=== PATIENT | male | born 1965 | race Hispanic/Latino ===

== ENCOUNTER → 2018-07-20 | Day surgery (SDC) | payer OTHER ==
[2018-07-17 13:29] LABS: ALBUMIN 3.3 g/dL (3.5-5.0); ALBUMIN/GLOBULIN RATIO 0.9 (0.8-2.0); ANION GAP 12.5 mmol/L (8-16); CALCIUM 9.4 mg/dL (8.4-10.2); CREATININE, SERUM 1.27 mg/dL (0.72-1.25); POTASSIUM 4.5 mmol/L (3.5-5.1)
[~2018-07-20] MED LIST: ACETAMINOPHEN500 MG PO; BUPIVACAINE HCL 0.5% INJ 30 ML VIAL INJ ONE; FLUTICASONE INH; FOLIC ACID1 MG PO; FUROSEMIDE40 MG PO; HYDROXYZINE HCL25 MG PO; IOPAMIDOL 200 MG/ML 20 ML VIAL IT ONE; LACTULOSE20 GM/30 M PO; LIDOCAINE HCL 1% LOCAL INJ 20 ML VIAL ONE; LIDOCAINE HCL 2% LOCAL INJ 5 ML SDV VIAL INJ ONE; MIDAZOLAM HCL 2 MG/2 ML VIAL ONE; MULTIVITAMINS1 EAC7 PO; PANTOPRAZOLE SO40 MG PO; PROPOFOL IV EMULSION 10 MG/ML 20 ML VIAL ONE; SPIRONOLACTONE25 MG PO; TRIAMCINOLONE ACET 40 MG/ML VIAL ONE; VITAMIN B-1100 M1 PO; VITAMIN B-121000 MCG PO; XIFAXAN550 MG PO
--- OUTSIDE RECORDS SUMMARY | 2018-07-20 05:08 | XMS REPORT ---
[facility] Address Unknown Phone Unavailable Care Team Providers Care Grinder Operator Automatic Name Role Phone Unavailable Unavailable Payers Payer Name Policy Type Policy Number Effective Date Expiration Date Problems This patient has no known problems. Allergies, Adverse Reactions, Alerts Allergy Name Allergy Type Status Severity Reaction(s) Onset Date Inactive Date Treating Clinician Comments No Known Allergies DA Active U 2018-01-27 00:00:00 No Known Contrast Allergies DA Active U 2007-09-15 00:00:00 No Known Drug Allergies DA Active U 2007-09-15 00:00:00 No Known Food Allergies DA Active U 2007-09-15 00:00:00 No Known Other Allergies DA Active U 2007-09-15 00:00:00 Medications This patient has no known medications.
--- OUTSIDE RECORDS SUMMARY | 2018-07-20 05:08 | XMS REPORT ---
Author Author Jose L Samuels Organization [employer] Address Unknown Phone Unavailable Care Team Providers Care Peanut Sheller Name Role Phone Jose L Samuels CP Unavailable Encounters Encounter Location Date 2013 [facility] auth [facility] September 22, 2013 lexiscan--message [facility] September 22, 2013 Problems Problem Type Condition ICD-9 Code Onset Dates Condition Status Problem Benign hypertension 401.1 Active Social History Social History Element Qualifiers Date Reported Caffeine: . none September 21, 2013 Recreational drug use: . none September 21, 2013 Tobacco Use: . Smoking Status: current smoker September 21, 2013 Alcohol: . 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
--- OUTSIDE RECORDS SUMMARY | 2018-07-20 05:08 | XMS REPORT | Continuity of Care Document ---
Author Author [facility] Interface Address Unknown Phone Unavailable Problems Problem Status Onset Date Classification Date Reported Comments Source Benign hypertension Active Diagnosis 02/07/2014 [facility] Medications Medication Details Route Status Patient Instructions Ordering Provider Order Date Source Benicar HCT 1 tab(s) orally Active 25 mg-40 mg orally once a day [facility] 09/21/2013 [facility] Benicar 1 tab(s) orally No Longer Active 40 mg orally once a day [facility] aspirin 1 tab(s) orally Active 81 mg orally once a day [facility] metoprolol 1 tab(s) orally Active 100 mg orally once a day [facility] fenofibrate 1 tab(s) orally Active 145 mg orally once a day [facility] Robaxin-750 2 tab(s) orally Active 750 mg orally prn [facility] minocycline 1 cap(s) orally Active 100 mg orally once a day [facility] tramadol 1 tab(s) orally Active 50 mg orally prn [facility] Nexium 1 cap(s) orally Active 40 mg orally once a day [facility] Allergies, Adverse Reactions, Alerts Substance Category Reaction Severity Reaction type Status Date Reported Comments Source N.K.D.A. Adverse Reaction Info Not Available Adverse Reaction Active 09/21/2013 [facility] Immunizations Immunization Date Given Site Status Last Updated Comments Source Results Order Name Results Value Reference Range Date Interpretation Comments Source Vital Signs Vital Sign Value Date Comments Source Diastolic (mm Hg) 84 09/21/2013 [facility] Systolic (mm Hg) 162 09/21/2013 [facility] Weight 261 09/21/2013 [facility] Height 69 09/21/2013 [facility] Encounters Location Location Details Encounter Type Encounter Number Reason For Visit Attending Provider ADM Date DC Date Status Source [facility] Unknown [id number] 09/21/2013 09/21/2013 [facility] 2013 [facility] N[facility] auth [id number] 09/22/2013 09/22/2013 [facility] 2013 [facility] N[facility] auth [id number] 09/22/2013 09/22/2013 [facility] 2013 [facility] N[facility] auth [id number] 09/22/2013 09/22/2013 [facility] 2013 [facility] auth [id number] 09/22/2013 09/22/2013 [facility] lexiscan--message [id number] 09/22/2013 09/22/2013 [facility]an--message [id number] 09/22/2013 09/22/2013 [facility] lex[facility]an--message [id number] 09/22/2013 09/22/2013 [facility] lex[facility]an--message [id number] 09/22/2013 09/22/2013 [facility] Test results [id number] 10/07/2013 10/07/2013 [facility] Test results [id number] 10/07/2013 10/07/2013 [facility] Procedures Procedure Code Date Perfomer Comments Source
--- OUTSIDE RECORDS SUMMARY | 2018-07-20 05:08 | XMS REPORT | Clinical Summary ---
Author Author [facility] Organization [facility] Address Unknown Phone Unavailable Care Team Providers Care Gaming Director Name Role Phone Amandeep Hardy MD PCP Allergies No Known Allergies Medications End Date Status Medication Sig Dispensed Refills Start Date Active pantoprazole (PROTONIX) Take 40 mg by 0 40 MG EC tablet mouth daily. Active fluticasone (FLONASE) 50 1 spray by 0 mcg/actuation nasal spray Each Nare route nightly. Active folic acid (FOLVITE) 1 MG Take 1 mg by 0 tablet mouth daily. Active furosemide (LASIX) 40 mg Take 40 mg by 0 tablet mouth daily. Active lactulose 10 gram/15 mL Take 10 g by 0 (15 mL) solution mouth 2 (two) times a day. HOLD if Diarrhea Active spironolactone Take 50 mg by 0 (ALDACTONE) 25 MG tablet mouth daily as needed (Blood Pressure control). Active cyanocobalamin 100 MCG Take 100 mcg 0 tablet by mouth daily. 06/18/2018 Discontinued metFORMIN (GLUCOPHAGE) Take 500 mg 0 500 mg tablet by mouth daily with breakfast. 06/18/2018 Discontinued MELATONIN ORAL Take 2 0 tablets by mouth nightly. 07/17/2018 midodrine (PROAMATINE) Take 1 tablet 90 tablet 0 2.5 MG tablet (2.5 mg 9 total) by mouth 3 (three) times a day for 30 days. 07/17/2018 hydrOXYzine (ATARAX) 10 Take 1 tablet 20 tablet 0 MG tablet (10 mg total) 9 by mouth 3 (three) times a day as needed for itching for up to 30 days. 07/17/2018 riFAXimin (XIFAXAN) 550 Take 1 tablet 60 tablet 0 mg tablet (550 mg 9 total) by mouth 2 (two) times a day for 30 days. 07/18/2018 thiamine mononitrate, vit Take 1 tablet 30 tablet 0 B1, (B-1) 100 mg tablet (100 mg 9 total) by mouth daily for 30 days. 07/17/2018 multivitamin with Take 1 tablet 30 tablet 0 minerals tablet by mouth 9 daily for 30 days. Active Problems Problem Noted Date Alcoholic cirrhosis of liver with ascites 06/11/2018 Hepatic encephalopathy 06/11/2018 Hepatorenal syndrome 06/11/2018 Hyperkalemia 06/11/2018 End stage liver disease 06/11/2018 Hepatitis C 06/11/2018 Encounters Care Team Description Date Type Specialty Vishal Vidal MD Huaman Vargas, Gonzalo, MD Hypotension as manifestation of blood transfusion reaction (Primary Dx); Acute renal failure, unspecified acute renal failure type (HCC); Alcoholic cirrhosis of liver with ascites (HCC); Hyperkalemia; Hepatic encephalopathy (HCC) 06/11/2018 [facility] General Internal Medicine - Encounter 06/18/2018 06/11/2018 Travel after 07/19/2017 Social History Date Tobacco Use Types Packs/Day Years Used Current Every Day Smoker Cigarettes 0.25 20 Tobacco Cessation: Counseling Given: No Alcohol Use Drinks/Week oz/Week Comments Yes 1 pink a day Sex Assigned at Date Recorded Not on file Industry Job Start Date Occupation Not on file Not on file Not on file Travel End Travel History Travel Start No recent travel history available. Last Filed Vital Signs Time Taken Vital Sign Reading 06/18/2018 8:17 AM [employer] Blood Pressure 139/66 06/18/2018 8:17 AM [employer] Pulse 93 06/18/2018 8:17 AM [employer] Temperature 36.8 C (98.2 F) 06/18/2018 8:17 AM [employer] Respiratory Rate 18 06/18/2018 8:17 AM [employer] Oxygen Saturation 97% - Inhaled Oxygen - Concentration 06/17/2018 11:32 PM [employer] Weight 109 kg (239 lb 3.2 oz) 06/13/2018 7:01 PM [employer] Height 175.3 cm (5' 9") 06/17/2018 11:32 PM [employer] Body Mass Index 35.32 Plan of Treatment Health Maintenance Due Date Last Done Comments COLON CANCER SCREENING 2017 SHINGLES VACCINES (#1) 2017 INFLUENZA VACCINE 12/24/2017 Procedures Comments Procedure Name Priority Date/Time Associated Diagnosis POC GLUCOSE Routine 06/18/2018 12:31 PM [employer] POC GLUCOSE Routine 06/18/2018 8:23 AM [employer] ESTIMATED GFR Routine 06/18/2018 5:16 AM [employer] PROTHROMBIN TIME WITH INR Routine 06/18/2018 5:16 AM [employer] HC COMPLETE BLD COUNT Routine 06/18/2018 W/AUTO DIFF 5:16 AM [employer] COMPREHENSIVE METABOLIC Routine 06/18/2018 PANEL 5:16 AM [employer] POC GLUCOSE Routine 06/17/2018 9:59 PM [employer] POC GLUCOSE Routine 06/17/2018 6:34 PM [employer] POC GLUCOSE Routine 06/17/2018 12:27 PM [employer] HEMOGLOBIN & HEMATOCRIT Routine 06/17/2018 10:08 AM [employer] POC GLUCOSE Routine 06/17/2018 7:41 AM [employer] ESTIMATED GFR Routine 06/17/2018 6:15 AM [employer] PROTHROMBIN TIME WITH INR Routine 06/17/2018 6:15 AM [employer] HEPATIC FUNCTION PANEL Routine 06/17/2018 6:15 AM [employer] BASIC METABOLIC PANEL Routine 06/17/2018 6:15 AM [employer] HC COMPLETE BLD COUNT Routine 06/17/2018 W/AUTO DIFF 6:15 AM [employer] POC GLUCOSE Routine 06/16/2018 12:32 PM [employer] US ABDOMINAL PARACENTESIS Routine 06/16/2018 IMAGING 11:16 AM [employer] CELL COUNT AND Routine 06/16/2018 DIFFERENTIAL, BODY FLUID 10:49 AM [employer] SMEAR REVIEW Routine 06/16/2018 4:33 AM [employer] ESTIMATED GFR Routine 06/16/2018 4:33 AM [employer] PROTHROMBIN TIME WITH INR Routine 06/16/2018 4:33 AM [employer] HEPATIC FUNCTION PANEL Routine 06/16/2018 4:33 AM [employer] BASIC METABOLIC PANEL Routine 06/16/2018 4:33 AM [employer] HC COMPLETE BLD COUNT Routine 06/16/2018 W/AUTO DIFF 4:33 AM [employer] PHOSPHORUS LEVEL Routine 06/16/2018 4:33 AM [employer] MAGNESIUM LEVEL Routine 06/16/2018 4:33 AM [employer] POC GLUCOSE Routine 06/15/2018 10:56 PM [employer] POC GLUCOSE Routine 06/15/2018 6:21 PM [employer] US DUPLEX VENOUS LOWER Routine 06/15/2018 EXTREMITY BILATERAL 4:20 PM [employer] POC GLUCOSE Routine 06/15/2018 12:44 PM [employer] POC GLUCOSE Routine 06/15/2018 8:20 AM [employer] SMEAR REVIEW Routine 06/15/2018 6:26 AM [employer] ESTIMATED GFR Routine 06/15/2018 6:26 AM [employer] PROTHROMBIN TIME WITH INR Routine 06/15/2018 6:26 AM [employer] URIC ACID LEVEL Routine 06/15/2018 6:26 AM [employer] HEPATIC FUNCTION PANEL Routine 06/15/2018 6:26 AM [employer] BASIC METABOLIC PANEL Routine 06/15/2018 6:26 AM [employer] HC COMPLETE BLD COUNT Routine 06/15/2018 W/AUTO DIFF 6:26 AM [employer] PHOSPHORUS LEVEL Routine 06/15/2018 6:26 AM [employer] MAGNESIUM LEVEL Routine 06/15/2018 6:26 AM [employer] POC GLUCOSE Routine 06/14/2018 10:53 PM [employer] POC GLUCOSE Routine 06/14/2018 7:40 PM [employer] POC GLUCOSE Routine 06/14/2018 12:24 PM [employer] POC GLUCOSE Routine 06/14/2018 7:56 AM [employer] SMEAR REVIEW Routine 06/14/2018 7:00 AM [employer] HC COMPLETE BLD COUNT Routine 06/14/2018 W/AUTO DIFF 7:00 AM [employer] PROTHROMBIN TIME WITH INR Routine 06/14/2018 7:00 AM [employer] BASIC METABOLIC PANEL Routine 06/14/2018 4:00 AM [employer] ESTIMATED GFR Routine 06/14/2018 4:00 AM [employer] POC GLUCOSE Routine 06/13/2018 9:55 PM [employer] US HEPATIC Routine 06/13/2018 9:05 PM [employer] POC GLUCOSE Routine 06/13/2018 4:37 PM [employer] CBC HEMOGRAM STAT 06/13/2018 3:25 PM [employer] ALPHA FETOPROTEIN Routine 06/13/2018 3:25 PM [employer] POC GLUCOSE Routine 06/13/2018 11:18 AM [employer] POC GLUCOSE Routine 06/13/2018 7:33 AM [employer] SMEAR REVIEW Routine 06/13/2018 3:30 AM [employer] ESTIMATED GFR Routine 06/13/2018 3:30 AM [employer] IONIZED CALCIUM Routine 06/13/2018 3:30 AM [employer] PHOSPHORUS LEVEL Routine 06/13/2018 3:30 AM [employer] MAGNESIUM LEVEL Routine 06/13/2018 3:30 AM [employer] COMPREHENSIVE METABOLIC Routine 06/13/2018 PANEL 3:30 AM [employer] HEMOCHROMATOSIS (HFE) 3 Routine 06/13/2018 MUTATIONS 3:30 AM [employer] HC COMPLETE BLD COUNT Routine 06/13/2018 W/AUTO DIFF 3:30 AM [employer] PROTHROMBIN TIME WITH INR Routine 06/13/2018 3:30 AM [employer] POC GLUCOSE Routine 06/12/2018 8:49 PM [employer] POC GLUCOSE Routine 06/12/2018 4:51 PM [employer] ESTIMATED GFR Routine 06/12/2018 3:37 PM [employer] BASIC METABOLIC PANEL Routine 06/12/2018 3:37 PM [employer] ECHOCARDIOGRAM 2D Routine 06/12/2018 COMPLETE W MMODE SPECTRAL 3:15 PM [employer] COLOR DOPPLER ([id number]) US ABDOMINAL PARACENTESIS STAT 06/12/2018 IMAGING 11:25 AM [employer] ALBUMIN, MISC FLUID Routine 06/12/2018 11:06 AM [employer] PROTEIN, MISC FLUID Routine 06/12/2018 11:06 AM [employer] CELL COUNT AND Routine 06/12/2018 DIFFERENTIAL, BODY FLUID 11:06 AM [employer] GRAM STAIN Routine 06/12/2018 11:06 AM [employer] AEROBIC CULTURE Routine 06/12/2018 11:06 AM [employer] ANAEROBIC CULTURE Routine 06/12/2018 11:06 AM [employer] POC GLUCOSE Routine 06/12/2018 8:28 AM [employer] HEMOGLOBIN & HEMATOCRIT Timed 06/12/2018 8:24 AM [employer] POC GLUCOSE Routine 06/12/2018 4:51 AM [employer] SMEAR REVIEW Routine 06/12/2018 4:00 AM [employer] ESTIMATED GFR Routine 06/12/2018 4:00 AM [employer] AMMONIA LEVEL Routine 06/12/2018 4:00 AM [employer] PHOSPHORUS LEVEL Routine 06/12/2018 4:00 AM [employer] MAGNESIUM LEVEL Routine 06/12/2018 4:00 AM [employer] LACTIC ACID LEVEL Routine 06/12/2018 4:00 AM [employer] COMPREHENSIVE METABOLIC Routine 06/12/2018 PANEL 4:00 AM [employer] HEMOGLOBIN A1C Routine 06/12/2018 4:00 AM [employer] HBV QUANTITATIVE BY PCR Routine 06/12/2018 4:00 AM [employer] HEPATITIS C ANTIBODY Routine 06/12/2018 4:00 AM [employer] HEPATITIS B SURFACE Routine 06/12/2018 ANTIBODY 4:00 AM [employer] HEPATITIS B CORE ANTIBODY Routine 06/12/2018 TOTAL 4:00 AM [employer] HEPATITIS A ANTIBODY Routine 06/12/2018 TOTAL 4:00 AM [employer] HEPATITIS A ANTIBODY IGM Routine 06/12/2018 4:00 AM [employer] HEPATITIS C VIRUS Routine 06/12/2018 QUANTITATIVE BY PCR 4:00 AM [employer] HEPATITIS B SURFACE Routine 06/12/2018 ANTIGEN 4:00 AM [employer] TOTAL IRON BINDING Routine 06/12/2018 CAPACITY 4:00 AM [employer] FERRITIN LEVEL Routine 06/12/2018 4:00 AM [employer] ALPHA-1 ANTITRYPSIN LEVEL Routine 06/12/2018 4:00 AM [employer] CERULOPLASMIN LEVEL Routine 06/12/2018 4:00 AM [employer] ANTI SMOOTH MUSCLE AB Routine 06/12/2018 SCREEN 4:00 AM [employer] ANTI MITOCHONDRIA SCREEN Routine 06/12/2018 4:00 AM [employer] CARLA Routine 06/12/2018 4:00 AM [employer] HC COMPLETE BLD COUNT Routine 06/12/2018 W/AUTO DIFF 4:00 AM [employer] PROTHROMBIN TIME WITH INR Routine 06/12/2018 4:00 AM [employer] GGT Routine 06/12/2018 4:00 AM [employer] POC GLUCOSE Routine 06/12/2018 12:51 AM [employer] HEMOGLOBIN & HEMATOCRIT Timed 06/12/2018 12:15 AM [employer] POC GLUCOSE Routine 06/11/2018 7:57 PM [employer] ESTIMATED GFR STAT 06/11/2018 7:28 PM [employer] COMPREHENSIVE METABOLIC STAT 06/11/2018 PANEL 7:28 PM [employer] POTASSIUM LEVEL STAT 06/11/2018 7:28 PM [employer] LACTIC ACID LEVEL, SEPSIS Timed 06/11/2018 - NOW AND REPEAT 2X EVERY 7:28 PM [employer] 3 HOURS US RENAL STAT 06/11/2018 6:52 PM [employer] CREATININE LEVEL, URINE, Routine 06/11/2018 RANDOM 6:05 PM [employer] SODIUM LEVEL, URINE, Routine 06/11/2018 RANDOM 6:05 PM [employer] POC GLUCOSE Routine 06/11/2018 6:00 PM [employer] POC GLUCOSE Routine 06/11/2018 5:09 PM [employer] URINALYSIS SCREEN AND STAT 06/11/2018 MICROSCOPY, WITH REFLEX 5:05 PM [employer] TO CULTURE URINE CULTURE STAT 06/11/2018 5:05 PM [employer] ECG 12-LEAD STAT 06/11/2018 4:[address] [employer] [address] ABDOMEN WO CONTRAST STAT 06/11/2018 4:00 PM [employer] TROPONIN Timed 06/11/2018 3:29 PM [employer] LACTIC ACID LEVEL, SEPSIS Timed 06/11/2018 - NOW AND REPEAT 2X EVERY 3:29 PM [employer] 3 HOURS PARTIAL THROMBOPLASTIN STAT 06/11/2018 TIME (PTT) 1:04 PM [employer] PROTHROMBIN TIME WITH INR STAT 06/11/2018 1:04 PM [employer] RESPIRATORY PATHOGEN Routine 06/11/2018 PANEL 12:55 PM [employer] INFLUENZA ANTIGEN TEST, Routine 06/11/2018 REFLEX NEGATIVE TO RPP 12:55 PM [employer] BLOOD CULTURE, AEROBIC & Routine 06/11/2018 ANAEROBIC 12:55 PM [employer] DE CRITICAL CARE, E/M Routine 06/11/2018 30-74 MINUTES 12:21 PM [employer] BLOOD CULTURE, AEROBIC & Routine 06/11/2018 ANAEROBIC 11:45 AM [employer] B NATRIURETIC PEPTIDE STAT 06/11/2018 11:32 AM [employer] PHOSPHORUS LEVEL STAT 06/11/2018 11:32 AM [employer] MAGNESIUM LEVEL STAT 06/11/2018 11:32 AM [employer] LACTIC ACID LEVEL STAT 06/11/2018 11:32 AM [employer] C-REACTIVE PROTEIN STAT 06/11/2018 11:32 AM [employer] ALCOHOL LEVEL, BLOOD STAT 06/11/2018 11:32 AM [employer] SMEAR REVIEW STAT 06/11/2018 11:32 AM [employer] ESTIMATED GFR STAT 06/11/2018 11:32 AM [employer] AMMONIA LEVEL STAT 06/11/2018 11:32 AM [employer] LIPASE LEVEL STAT 06/11/2018 11:32 AM [employer] COMPREHENSIVE METABOLIC STAT 06/11/2018 PANEL 11:32 AM [employer] HC COMPLETE BLD COUNT STAT 06/11/2018 W/AUTO DIFF 11:32 AM [employer] after 07/19/2017 Results * POC glucose (06/18/2018 12:31 PM [employer]) Only the most recent of 27 results within the time period is included. POC glucose 83 65 - 99 mg/dL [facility] Comment: [facility] Notified RN Meter ID: [id number] Ath[employer] Marketing Agent: Yeyo Figueroa Performing Organization Address City/[facility]ode Phone Number [facility] DEPARTMENT OF [address] [place] [address] PATH[address] * Estimated GFR (06/18/2018 5:16 AM [employer]) Only the most recent of 10 results within the time period is included. Estimated GFR 64 mL/min/1.73 m2 [facility] Comment: HOSPITAL CatergoryUnitsInte rpretation G1 >=90 Normal or high G2 60-89Mildly decreased [id number] Mildly to moderately decreased [id number] Moderately to severely decreased G4 15-29Severely decreased G5 <15Kidney failure The eGFR was calculated using the Chronic Kidney Disease Epidemiology Collaboration (CKD-EPI) equation. Interpretation is based on recommendations of the National Kidney Foundation-Kidney Disease Outcomes Quality Initiative (NKF-KDOQI) published in 2014. Specimen Plasma specimen Performing Organization Address City/[facility]/Zipcode Phone Number [facility] DEPARTMENT OF [address] [place] [address] PATHOLOGY AND [facility] MEDICINE [address] * Prothrombin time with INR (06/18/2018 5:16 AM [employer]) Only the most recent of 8 results within the time period is included. Prothrombin time 23.3 (H) 11.5 - 14.5 sec [facility] INR 2.1 [facility] Comment: HOSPITAL The International Normalized Ratio (INR) is a therapeutic monitoring tool for patients who are stable on oral anticoagulant therapy. An INR of 2.0-3.0 is suggested for deep vein thrombosis/pulmonary embolism. Specimen Blood Performing Organization Address City/State/Zipcode Phone Number [facility] DEPARTMENT OF [address] [place] [address] PATHOLOGY AND GENOMIC MEDICINE [address] * CBC with platelet and differential (06/18/2018 5:16 AM [employer]) Only the most recent of 8 results within the time period is included. WBC 6.55 4.50 - 11.00 k/uL [facility] RBC 2.40 (L) 4.40 - 6.00 m/uL [facility] HGB 8.5 (L) 14.0 - 18.0 g/dL [facility] HCT 25.2 (L) 41.0 - 51.0 % [facility] MCV 105.0 (H) 82.0 - 100.0 fL [facility] MCH 35.4 (H) 27.0 - 34.0 pg [facility] MCHC 33.7 31.0 - 37.0 g/dL [facility] RDW - SD 64.9 (H) 37.0 - 55.0 fL [facility] MPV 10.6 8.8 - 13.2 fL [facility] Platelet count 54 (L) 150 - 400 k/uL [facility] Nucleated RBC 0.00 /100 WBC [facility] Neutrophils 63.0 39.0 - 69.0 % [facility] Lymphocytes 26.9 25.0 - 45.0 % [facility] Monocytes 6.3 0.0 - 10.0 % [facility] Eosinophils 2.7 0.0 - 5.0 % [facility] Basophils 0.6 0.0 - 1.0 % [facility] Immature granulocytes 0.5Comment: "Immature 0.0 - 1.0 % [facility] granulocytes" (promyelocytes, HOSPITAL myelocytes, metamyelocytes) Specimen Blood Performing Organization Address City/State/Zipcode Phone Number [facility] DEPARTMENT OF [address] [place] [address] PATHOLOGY AND GENOMIC MEDICINE [address] * Comprehensive metabolic panel (06/18/2018 5:16 AM [employer]) Only the most recent of 5 results within the time period is included. Sodium 138 135 - 148 mEq/L [facility] Potassium 4.1 3.5 - 5.0 mEq/L [facility] Chloride 105 98 - 112 mEq/L [facility] CO2 22 (L) 24 - 31 mEq/L [facility] Anion gap 11@ANIO 7 - 15 mEq/L [facility] BUN 26 (H) 6 - 20 mg/dL [facility] Creatinine 1.29 (H) 0.70 - 1.20 mg/dL [facility] Glucose 121 (H) 65 - 99 mg/dL [facility] Calcium 8.5 8.3 - 10.2 mg/dL [facility] Protein 6.1 (L) 6.3 - 8.3 g/dL [facility] Comment: HOSPITAL [place] 4.6-7.0 g/dL 1 week 4.4-7.6 g/dL 7 months-1year 5.1-7.3 g/dL 1-2 years5.6-7 .5 g/dL >3 years6.0-8 .0 g/dL 18-150 6.3-8.3 g/dL Albumin 3.7 3.5 - 5.0 g/dL [facility] A/G ratio 1.5 0.7 - 3.8 [facility] Alkaline phosphatase 142 (H) 40 - 129 U/L [facility] AST 119 (H) 10 - 50 U/L [facility] ALT 99 (H) 5 - 50 U/L [facility] Total bilirubin 6.4 (H) 0.0 - 1.2 mg/dL [facility] Specimen Plasma specimen Performing Organization Address [facility] Phone Number [facility] DEPARTMENT OF [address] [place] [address] PATHOLOGY AND GENOMIC MEDICINE [address] * Hemoglobin & hematocrit (06/17/2018 10:08 AM [employer]) Only the most recent of 3 results within the time period is included. HGB 9.1 (L) 14.0 - 18.0 g/dL [facility] HCT 26.8 (L) 41.0 - 51.0 % [facility] Specimen Blood Performing Organization Address [facility]/Zipcode Phone Number [facility] DEPARTMENT OF [address] [place] [address] PATHOLOGY AND GENOMIC MEDICINE [address] * Hepatic function panel (06/17/2018 6:15 AM [employer]) Only the most recent of 3 results within the time period is included. Albumin 3.4 (L) 3.5 - 5.0 g/dL [facility] Total bilirubin 6.4 (H) 0.0 - 1.2 mg/dL [facility] Bilirubin direct 3.7 (H) 0.0 - 0.3 mg/dL [facility] Alkaline phosphatase 137 (H) 40 - 129 U/L [facility] Protein 6.1 (L) 6.3 - 8.3 g/dL [facility] Comment: HOSPITAL [place] 4.6-7.0 g/dL 1 week 4.4-7.6 g/dL 7 months-1year 5.1-7.3 g/dL 1-2 years5.6-7 .5 g/dL >3 years6.0-8 .0 g/dL 18-150 6.3-8.3 g/dL ALT 103 (H) 5 - 50 U/L [facility] AST 120 (H) 10 - 50 U/L [facility] Specimen Plasma specimen Performing Organization Address City/[facility]/Zipcode Phone Number [facility] DEPARTMENT OF [address] [place] [address] PATHOLOGY AND GENOMIC MEDICINE [address] * Basic metabolic panel (06/17/2018 6:15 AM [employer]) Only the most recent of 5 results within the time period is included. Sodium 136 135 - 148 mEq/L [facility] Potassium 4.2 3.5 - 5.0 mEq/L [facility] Chloride 104 98 - 112 mEq/L [facility] CO2 25 24 - 31 mEq/L [facility] Anion gap 7@ANIO 7 - 15 mEq/L [facility] BUN 29 (H) 6 - 20 mg/dL [facility] Creatinine 1.22 (H) 0.70 - 1.20 mg/dL [facility] Glucose 127 (H) 65 - 99 mg/dL [facility] Calcium 8.3 8.3 - 10.2 mg/dL [facility] Specimen Plasma specimen Performing Organization Address City/State/Zipcode Phone Number [facility] DEPARTMENT [facility] [address] [place] [address] PATHOLOGY AND GENOMIC MEDICINE [facility] [address] * US Abdominal Paracentesis Imaging (06/16/2018 11:16 AM [employer]) Only the most recent of 2 results within the time period is included. Narrative Performed At PROCEDURE: RADIANT Ultrasound-guided paracentesis Performing Radiologist: Elisabet Bolanos PA-C Assistants: None Pre Procedure Diagnosis: ASCITES Post Procedure Diagnosis: ASCITES Indication: Ascites Complications: No immediate post procedure complications. IMPRESSION: 1.Technically successful ultrasound-guided diagnostic/therapeutic paracentesis. 2.There is a moderate simple ascites. 3.Trace residual ascites is seen on postprocedure ultrasound. PLAN: The patient will be monitored in the recovery area for approximately 30 minutes to evaluate vital signs and blood pressure. PROCEDURE SUMMARY: Access of the peritoneal space using ultrasound guidance PROCEDURE DETAILS: Pre-procedure: Comparison studies: None Written and informed consent for the procedure and monitored conscious sedation was obtained from the patient. Prophylactic antibiotics: None Preparation: The right lower quadrant of the abdomen was prepared and draped using all elements of maximal sterile barrier technique including sterile gloves, sterile gown, catheter, mask, large sterile sheet, sterile ultrasound probe cover, hand hygiene and cutaneous antisepsis using chlorhexidine. Anesthesia/Sedation: Level of anesthesia: None (Lidocaine only) Medications used: 1% lidocaine Duration of anesthesia/sedation: N/A Access: Local anesthesia was administered. The right lower quadrantwas evaluated with preprocedure ultrasound. Real-time ultrasound was used to visualize needle entry into the peritoneal space. Access technique: 5 Malaysian Yueh Needle Paracentesis: Fluid Color: Yellow Volume Removed: 3100 mL Fluid Analysis: The fluid was sent for laboratory tests ordered by the primary team Closure: The One-step catheter was removed and hemostasis was achieved with manual compression. A sterile dressing was applied. Additional details: Estimated blood loss: Less than 10 cc [facility]-[id number] Procedure Note [facility], Radiology Results Incoming - 06/16/2018 3:48 PM [employer] PROCEDURE: Ultrasound-guided paracentesis Performing Radiologist: Elisabet Bolanos PA-C Assistants: None Pre Procedure Diagnosis: ASCITES Post Procedure Diagnosis: ASCITES Indication: Ascites Complications: No immediate post procedure complications. IMPRESSION: 1. Technically successful ultrasound-guided diagnostic/therapeutic paracentesis. 2. There is a moderate simple ascites. 3. Trace residual ascites is seen on postprocedure ultrasound. PLAN: The patient will be monitored in the recovery area for approximately 30 minutes to evaluate vital signs and blood pressure. PROCEDURE SUMMARY: Access of the peritoneal space using ultrasound guidance PROCEDURE DETAILS: Pre-procedure: Comparison studies: None Written and informed consent for the procedure and monitored conscious sedation was obtained from the patient. Prophylactic antibiotics: None Preparation: The right lower quadrant of the abdomen was prepared and draped using all elements of maximal sterile barrier technique including sterile gloves, sterile gown, catheter, mask, large sterile sheet, sterile ultrasound probe cover, hand hygiene and cutaneous antisepsis using chlorhexidine. Anesthesia/Sedation: Level of anesthesia: None (Lidocaine only) Medications used: 1% lidocaine Duration of anesthesia/sedation: N/A Access: Local anesthesia was administered. The right lower quadrant was evaluated with preprocedure ultrasound. Real-time ultrasound was used to visualize needle entry into the peritoneal space. Access technique: 5 Malaysian Yueh Needle Paracentesis: Fluid Color: Yellow Volume Removed: 3100 mL Fluid Analysis: The fluid was sent for laboratory tests ordered by the primary team Closure: The One-step catheter was removed and hemostasis was achieved with manual compression. A sterile dressing was applied. Additional details: Estimated blood loss: Less than 10 cc [facility]-[id number] Performing Organization Address [facility] Phone Number [facility] [address] [place] [address] * Cell count and differential, body fluid (06/16/2018 10:49 AM [employer]) Only the most recent of 2 results within the time period is included. [facility] fluid type Ascitic [facility] Color, fluid Yellow [facility] Appearance, fluid Hazy [facility] RBC, fluid SEE COMMENTComment: 2+ (500 - /CMM [facility] 10,000 RBC/CMM) HOSPITAL Nucleated cells, fluid 178 /CMM [facility] Fluid mononuclear cell See Diff [facility] Neutrophils, fluid 1 % [facility] Lymphocytes, fluid 19 % [facility] Macrophages, fluid 80 % [facility] Specimen Fluid Performing Organization Address [facility] Phone Number [facility] DEPARTMENT OF [address] [place] [address] PATHOLOGY AND GENOMIC MEDICINE [address] * Smear review (06/16/2018 4:33 AM [employer]) Only the most recent of 6 results within the time period is included. Platelet slide review Mkd decreased (A) [facility] Anisocytosis Moderate [facility] Polychromasia Moderate [facility] Target cells Moderate (A) [facility] Ovalocytes Moderate [facility] Performing Organization Address [facility] Phone Number [facility] [place] [address] PATHOLOGY AND GENOMIC MEDICINE [address] * Phosphorus level (06/16/2018 4:33 AM [employer]) Only the most recent of 5 results within the time period is included. Phosphorus 2.3 (L) 2.4 - 4.5 mg/dL [facility] Specimen Plasma specimen Performing Organization Address [facility] Phone Number [facility] [place] [address] PATHOLOGY AND GENOMIC MEDICINE [address] * Magnesium level (06/16/2018 4:33 AM [employer]) Only the most recent of 5 results within the time period is included. Magnesium 2.2 1.6 - 2.6 mg/dL [facility] Specimen Plasma specimen Performing Organization Address [facility] Phone Number [facility] [place] [place] [address] PATHOLOGY AND GENOMIC MEDICINE [address] * Us duplex venous lower extremity (06/15/2018 4:20 PM [employer]) Narrative Performed At [facility] Lower Extremity Venous Report [address] [place] [address] Pat.Name:PAYTON ESTEVES.ID:[id number] .Date: 06/15/2018 Refer.MD:LIZZETTE HALL MD Exam Time: 3:52:00 PMStudy Type:LE Venous DOBAge:1965,53YSex: MALE Sonogrphr: Farfan Vi, RVTPat. Stat.:Inpatient Room:[address] TapeVol: , CPT - 4: 43976 Echo Event ID:[id number] Order ID:[id number] Reason for Study:Bilateral leg swelling. History of acute kidney injury, alcoholic liver cirrhosis, Hep C, DM, HTN. Procedures:Colorflow, Grayscale/2D, Pulsed wave Doppler Race:C SUMMARY: * Normal Reflux Criteria:< 0.5 seconds * Abnormal Reflux Criteria:> or equal to 0.5 seconds DUPLEX SCAN OBSERVATIONS Deep VeinsSuperficial Veins RightLeft RightLeft EIV GSV (prox) NormalNormal CFV Normal Incompetent (above knee) Femoral Normal Normal GSV (dist) Normal Not Visualized Profunda Normal Normal (below knee) Popliteal Normal Normal PT (prox) Normal NormalSSV Normal Normal PT (dist) Normal Normal Peroneal Normal Normal Gastroc NormalNormal RIGHT: There is normal compressibility with no evidence of echogenic material noted within the lumen of the visualized veins.Colorflow and Doppler signals are normal. LEFT: There is normal compressibility with no evidence of echogenic material noted within the lumen of the visualized veins.Colorflow and Doppler signals are demonstrate venous reflux> 0.5 seconds seen in the common femoral vein. PRELIMINARY FINDINGS 1. No evidence of venous thrombosis seen in the visualized veins, bilaterally. 2. 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 PHYSICIAN INTERPRETATION Venous examination of the both lower extremities demonstrated no evidence of venous thrombosis in the visualized veins. 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 MEASUREMENTS: DOPPLER General Anatomy Left General An 0Left General An 0 TIME Left General An 0.805 s Signed 06/15/2018 09:09 PM Gopal Munoz MD, RPVI Procedure Note Interface, Radiology Results In - 06/15/2018 9:09 PM [facility] Vascular Ultrasound Laboratory Lower Extremity Venous Report [address] [address], [place] [address] Pat.Name: PAYTON ESTEVES.ID: [id number] .Date: 06/15/2018 Refer.: LIZZETTE HALL MD Exam Time: 3:52:00 PM Study Type:LE Venous Age: 12 1965,53Y Sex: MALE Sonogrphr: Farfan [place], RVT Pat. Stat.:Inpatient Room: M6VO-3467-E Tape Vol: [facility] - 4: [address] Echo Event ID:[id number] Order ID: [id number] Reason for Study:Bilateral leg swelling. History of acute kidney injury, alcoholic liver cirrhosis, Hep C, DM, HTN. Procedures:Colorflow, Grayscale/2D, Pulsed wave Doppler Race: C SUMMARY: * Normal Reflux Criteria: < 0.5 seconds * Abnormal Reflux Criteria: > or equal to 0.5 seconds DUPLEX SCAN OBSERVATIONS Deep Veins Superficial Veins Right Left Right Left EIV GSV (prox) Normal Normal CFV Normal Incompetent (above knee) Femoral Normal Normal GSV (dist) Normal Not Visualized Profunda Normal Normal (below knee) Popliteal Normal Normal PT (prox) Normal Normal SSV Normal Normal PT (dist) Normal Normal Peroneal Normal Normal Gastroc Normal Normal RIGHT: There is normal compressibility with no evidence of echogenic material noted within the lumen of the visualized veins.Colorflow and Doppler signals are normal. LEFT: There is normal compressibility with no evidence of echogenic material noted within the lumen of the visualized veins.Colorflow and Doppler signals are demonstrate venous reflux> 0.5 seconds seen in the common femoral vein. PRELIMINARY FINDINGS 1. No evidence of venous thrombosis seen in the visualized veins, bilaterally. 2. 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 PHYSICIAN INTERPRETATION Venous examination of the both lower extremities demonstrated no evidence of venous thrombosis in the visualized veins. 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 MEASUREMENTS: DOPPLER General Anatomy Left General An 0 Left General An 0 TIME Left General An 0.805 s Signed 06/15/2018 09:09 PM Gopal Munoz MD, RPVI Performing Organization Address City/State/Zipcode Phone Number [facility] [address] [place] [address] * Uric acid level (06/15/2018 6:26 AM [employer]) Uric acid 9.6 (H) 3.4 - 7.0 mg/dL [facility] Specimen Plasma specimen Performing Organization Address City/[facility]/Zipcode Phone Number [facility] DEPARTMENT OF [address] [place] [address] PATHOLOGY AND GENOMIC MEDICINE [place] [id number] H[facility]PITAL * US Hepatic (06/13/2018 9:05 PM [employer]) Narrative Performed At EXAM: US HEPATIC RADIANT CLINICAL HISTORY:Cirrhosis COMPARISON: CT, 06/11/2018 FINDINGS: Liver:The enlarged liver is diffusely heterogeneous in echogenicity and has a nodular contour consistent with cirrhosis. MPV:Doppler evaluation of the portal vein demonstrates normal hepatopedal flow. Main portal vein diameter 1.7 cm. Gallbladder:The gallbladder demonstrates a couple small calculi. The gallbladder wall is minimally thickened to 4.26 mm. Bile ducts:Common bile duct measures 3.9 mm, within normal limits. No intrahepatic biliary dilatation. Ascites: Small amount of ascites identified sonographically.. Pleural effusion:There are no pleural effusions. IMPRESSION: 1.Hepatic cirrhosis. Small amount of ascites. Minimal amount of small gallbladder calculi. Minimal gallbladder wall thickening to 4.3 mm, likely secondary to the patient's overall volume overload/hyperproteinemia. [facility]-[id number] Procedure Note Interface, Radiology Results Incoming - 06/13/2018 11:08 PM [employer] EXAM: US HEPATIC CLINICAL HISTORY: Cirrhosis COMPARISON: CT, 06/11/2018 FINDINGS: Liver: The enlarged liver is diffusely heterogeneous in echogenicity and has a nodular contour consistent with cirrhosis. MPV: Doppler evaluation of the portal vein demonstrates normal hepatopedal flow. Main portal vein diameter 1.7 cm. Gallbladder: The gallbladder demonstrates a couple small calculi. The gallbladder wall is minimally thickened to 4.26 mm. Bile ducts: Common bile duct measures 3.9 mm, within normal limits. No intrahepatic biliary dilatation. Ascites: Small amount of ascites identified sonographically.. Pleural effusion: There are no pleural effusions. IMPRESSION: 1. Hepatic cirrhosis. Small amount of ascites. Minimal amount of small gallbladder calculi. Minimal gallbladder wall thickening to 4.3 mm, likely secondary to the patient's overall volume overload/hyperproteinemia. [facility]-[id number] Performing Organization Address City/[facility]/Zipcode Phone Number [address] [address] * Alpha fetoprotein (06/13/2018 3:25 PM [employer]) Alpha fetoprotein 3.3 0.0 - 8.3 ng/mL [facility] Comment: HOSPITAL The Chelsea 8000 AFP immunoassay was used. Results obtained with different assay methods or kits should not be used interchangeably and may be different. Specimen Serum Performing Organization Address [facility] Phone Number [facility] DEPART[facility] [address] [address] PATHOLOGY AND GENOMIC MEDICINE [address] * CBC hemogram (06/13/2018 3:25 PM [employer]) WBC 8.15 4.50 - 11.00 k/uL [facility] RBC 2.69 (L) 4.40 - 6.00 m/uL [facility] HGB 9.5 (L) 14.0 - 18.0 g/dL [facility] HCT 28.5 (L) 41.0 - 51.0 % [facility] MCV 105.9 (H) 82.0 - 100.0 fL [facility] MCH 35.3 (H) 27.0 - 34.0 pg [facility] MCHC 33.3 31.0 - 37.0 g/dL [facility] RDW - SD 73.1 (H) 37.0 - 55.0 fL [facility] MPV 10.4 8.8 - 13.2 fL [facility] Platelet count 101 (L) 150 - 400 k/uL [facility] Nucleated RBC 0.00 /100 WBC [facility] Specimen Blood Performing Organization Address City/[facility]/Zipcode Phone Number [facility] DEPARTMENT [facility] [place] [address] PATHOLOGY AND GENOMIC MEDICINE [address] * Hemochromatosis (HFE) 3 mutations (06/13/2018 3:30 AM [employer]) HFE PCR specimen Whole Blood [facility] C282Y hemochromatosis Negative [facility] mutation H63D hemochromatosis Negative [facility] mutation S65C hemochromatosis Negative [facility] mutation Hemochromatosis mutation See Note [facility] interpretation Comment: Indication for testing: Carrier screening or diagnostic testing for hereditary hemochromatosis. Hemochromatosis Interpretive Results: Negative WT: C282Y: NegativeThe patient is negative for the HFE C282Y mutation. H63D: NegativeThe patient is negative for the HFE H63D mutation. S65C: NegativeThe patient is negative for the HFE S65C mutation. Mutations in unidentified genes or other mutations in the HFE gene are not ruled out. This result has been reviewed and approved by Will Madden, Ph.D. BACKGROUND INFORMATION: Hemochromatosis (HFE) 3 Mutations CHARACTERISTICS: Disorder of iron metabolism resulting in excessive iron storage leading to increased skin pigmentation, arthritis, hypogonadism, diabetes mellitus, heart arrhythmias/failure, cirrhosis and liver carcinoma. INCIDENCE: One in 300 individuals of [place] descent; unknown in other ethnicities. INHERITANCE: Autosomal recessive. PENETRANCE: 5 percent of C282Y homozygotes, 1 percent of C282Y/H63D compound heterozygotes and rare H63D homozygotes develop clinical symptoms. CAUSE: Two pathogenic HFE gene mutations on opposite chromosomes. MUTATIONS TESTED: p.C282Y (c.845G>A), p.H63D (c.187C>G), and p.S65C (c.193A>T). CLINICAL SENSITIVITY: 85 percent of hereditary hemochromatosis in Northern Europeans is caused by C282Y homozygosity and 5 percent by C282Y/H63D compound heterozygosity. METHODOLOGY: PCR and fluorescence monitoring. ANALYTICAL SENSITIVTY AND SPECIFICITY: 99 percent. LIMITATIONS: HFE mutations, other than those targeted, will not be detected. Diagnostic errors can occur due to rare sequence variations. Test developed and characteristics determined by [employer]. See Compliance Statement C: [employer]/ Performed by [employer], [address] [place], [place] [id number] [email or web address], Alfonzo Montoya MD - Lab. Director Specimen Serum Performing Organization Address City/State/Zipcode Phone Number [facility] [address] [place] [address] [facility] RE[facility] [address] [place] [address] * Ionized calcium (06/13/2018 3:30 AM [employer]) pH 7.57 [facility] Ionized calcium 1.11 1.11 - 1.32 mmol/L [facility] Specimen Plasma specimen Performing Organization Address City/State/Zipcode Phone Number [facility] DEPARTMENT OF [address] [place] [address] PATHOLOGY AND GENOMIC MEDICINE [facility] [address] [place] [address] HOSPITAL * Echocardiogram complete w contrast and 3D if needed (06/12/2018 3:15 PM [employer]) Narrative Performed At [facility] Echocardiography Report [address] [facility], [address], [place] [address] Pat.Name:PAYTON ESTEVES Pat.ID:[id number] .Date: 06/12/2018 Refer.MD:LIZZETTE HALL MD Exam Time: 2:41:00 PMStudy Type:Routine Echo Height:59inWeight:260lb BSA: 2.06 m2 DOBAge:1965,53Y Sex: MALEBP:129/58 HR:75 bpm Sonogrphr: Sherron Lowry RDCS; Jennifer Ruffin (student) Pat. Stat.:Inpatient Room:[place] [address] Study Status:Final Echo Event ID:[id number] Order ID:[id number] Reason for Study:systolic murmur, also workup for possible transplant Procedures:2D Echo, Colorflow Doppler, Portable, Intravenous Definity Contrast Race: SUMMARY: LV EF is hyperdynamic. Estimated EF is >70%. No hemodynamically significant valvular pathology. FINDINGS: LV: LV size is normal. LV EF is hyperdynamic. Overall wall motionis hyperdynamic. Estimated EF is >70%. RV: RV size is normal. RV systolic function is hyperdynamic. LA: LA volume is severely enlarged. RA: RA size is normal. AO: Aortic root diameter is normal. SENIA: No pericardial effusion. AV: No structural AV abnormalities noted. MV: No structural MV abnormalities noted. PV: No structural PV abnormalities noted. TV: No structural TV abnormalities noted. Zapata: LV relaxation is reduced, appropriate for age. LV filling pressureis normal. Other:Insufficient TR jet to estimate PA systolic pressure. MEASUREMENTS: 2D Parasternal Long [place] LVOT 2.2 cmLA Ds5 cm LVIDd5.3 cmIndex2.6 cm/m Ao An2.3 cm LVIDs2.4 cmAo Rtd 3.5 cm Index1.7 cm/m LV%fs 54.7 % LV Ldyj399.7 g(122-174) IVSd 1.2 cmLVM Umofq166.5 g/m2 LVPWd1 cmRWT0.4 LA Sng Plane LA Area 32.4 cm2(8.8-23.4) LA Vol 131 ml Index63.6 ml/m LA LngAx 6.6 cm Signed 06/12/2018 06:38 PM Dea Duarte MD Procedure Note Interface, Radiology Results In - 06/12/2018 6:39 PM [employer] Echocardiography Report [address]Name: PAYTON ESTEVES.ID: [id number] .Date: 06/12/2018 Refer.: LIZZETTE HALL MD Exam Time: 2:41:00 PM Study Type:Routine Echo Height: 59in Weight: 260lb BSA: 2.06 m2 Age: 12 1965,53Y Sex: MALE BP: 129/58 HR: 75 bpm Sonogrphr: Sherron Lowry RDCS; Jennifer Ruffin (student) Pat. Stat.:Inpatient Room: [place] [address] Study Status:Final Echo Event ID:[id number] Order ID: [id number] Reason for Study:systolic murmur, also workup for possible transplant Procedures:2D Echo, Colorflow Doppler, Portable, Intravenous Definity Contrast Race: SUMMARY: LV EF is hyperdynamic. Estimated EF is >70%. No hemodynamically significant valvular pathology. FINDINGS: LV: LV size is normal. LV EF is hyperdynamic. Overall wall motion is hyperdynamic. Estimated EF is >70%. RV: RV size is normal. RV systolic function is hyperdynamic. LA: LA volume is severely enlarged. RA: RA size is normal. AO: Aortic root diameter is normal. SENIA: No pericardial effusion. AV: No structural AV abnormalities noted. MV: No structural MV abnormalities noted. PV: No structural PV abnormalities noted. TV: No structural TV abnormalities noted. Zapata: LV relaxation is reduced, appropriate for age. LV filling pressure is normal. Other: Insufficient TR jet to estimate PA systolic pressure. MEASUREMENTS: 2D Parasternal [place] LVOT 2.2 cm LA Ds 5 cm LVIDd 5.3 cm Index 2.6 cm/m Ao An 2.3 cm LVIDs 2.4 cm Ao Rtd 3.5 cm Index 1.7 cm/m LV%fs 54.7 % LV Mass 227.7 g (122-174) IVSd 1.2 cm LVM Index 110.5 g/m2 LVPWd 1 cm RWT 0.4 LA Sng Plane LA Area 32.4 cm2 (8.8-23.4) LA Vol 131 ml Index 63.6 ml/m LA LngAx 6.6 cm Signed 06/12/2018 06:38 PM Dea Duarte MD Performing Organization Address City/[facility] Phone Number [facility] [address] [place] [address] * Aerobic culture (06/12/2018 11:06 AM [employer]) Aerobic culture isolate No growth after 3 days. [facility] Comment: HOSPITAL Specimen Information Specimen Source: Peritoneal fluid Specimen Site: Ascites Specimen Peritoneal fluid - Ascites Performing Organization Address [facility] Phone Number [facility] DEPARTMENT OF [address] [place] [address] PATHOLOGY AND GENOMIC MEDICINE [address] * Gram stain (06/12/2018 11:06 AM [employer]) Gram stain isolate Rare WBC's [facility] No organisms seen HOSPITAL Comment: Specimen Information Specimen Source: Peritoneal fluid Specimen Site: Ascites Specimen Peritoneal fluid - Ascites Performing Organization Address [facility] Phone Number [facility] DEPARTMENT OF [address] [place] [address] PATHOLOGY AND GENOMIC MEDICINE [address] * Anaerobic culture (06/12/2018 11:06 AM [employer]) Anaerobic culture isolate No anaerobic organisms [facility] isolated. HOSPITAL Comment: Specimen Information Specimen Source: Peritoneal fluid Specimen Site: Ascites Specimen Peritoneal fluid - Ascites Performing Organization Address [facility] Phone Number [facility] DEPARTMENT OF [address] [place] [address] PATHOLOGY AND GENOMIC MEDICINE [address] * Protein, misc fluid (06/12/2018 11:06 AM [employer]) Fluid type Ascitic [facility] Protein, fluid 1.0 g/dL [facility] Comment: HOSPITAL Analysis performed on Chelsea 8000 analyzer. This is not an approved methodology for this specimen type;accuracy and clinical significance uncertain. Specimen Fluid Performing Organization Address City/[facility] Phone Number [facility] DEPARTMENT OF [address] [place] [address] PATHOLOGY AND GENOMIC MEDICINE [address] * Albumin, misc fluid (06/12/2018 11:06 AM [employer]) Fluid type Ascitic [facility] Albumin, fluid 0.4 g/dL [facility] Comment: HOSPITAL Analysis performed on Chelsea 8000 analyzer. This is not an approved methodology for this specimen type;accuracy and clinical significance uncertain. Specimen Fluid Performing Organization Address City/[facility] Phone Number [facility] DEPARTMENT OF [address] [place] [address] PATHOLOGY AND GENOMIC MEDICINE [address] * Anti smooth muscle Ab screen (06/12/2018 4:00 AM [employer]) Anti smooth muscle Ab Not Detected Not-Detected [facility] Specimen Blood Performing Organization Address [facility] Phone Number [facility] [place] [place] [address] PATHOLOGY AND GENOMIC MEDICINE [address] * Total iron binding capacity (06/12/2018 4:00 AM [employer] [employer]) Iron level 104 59 - 158 ug/dL [facility] Iron binding capacity 121 (L) 200 - 400 ug/dL [facility] % Saturation 86.0 (H) 20.0 - 40.0 % [facility] Specimen Plasma specimen Performing Organization Address [facility] Phone Number [facility] DEPARTMENT OF [address] [place] [address] PATHOLOGY AND GENOMIC MEDICINE [address] * HBV quantitative by PCR (06/12/2018 4:00 AM [employer]) HBV, quantitative PCR Not-Detected Not-Detected IU/mL [facility] HBV, quantitative PCR See link below for PDF Lab [facility] ReportComment: Case Number: [facility] [id number] Specimen Blood Performing Organization Address City/[facility] Phone Number [facility] DEPARTMENT OF [address] [place] [address] PATHOLOGY AND GENOMIC MEDICINE [address] * Hepatitis C antibody (06/12/2018 4:00 AM [employer]) Hepatitis C Ab Non-reactive Non-reactive [facility] Specimen Serum Performing Organization Address City/[facility] Phone Number [facility] [place] [address] PATHOLOGY AND [facility] MEDICINE [address] * Alpha-1 antitrypsin level (06/12/2018 4:00 AM [employer]) Alpha-1 antitrypsin 119 90 - 200 mg/dL [facility] Specimen Plasma specimen Performing Organization Address City/[facility] Phone Number [facility] [place] [address] PATHOLOGY AND [facility] MED[facility] [address] * Hepatitis A antibody IgM (06/12/2018 4:00 AM [employer]) Hepatitis A IgM Non-reactive Non-reactive [facility] Specimen Serum Performing Organization Address [facility] Phone Number [facility] [place] [address] PATHOLOGY AND [facility] MEDICINE [address] * Hepatitis A antibody total (06/12/2018 4:00 AM [employer]) Hepatitis A total Ab Reactive (A) Non-reactive [facility] Comment: HOSPITAL Hepatitis A Total Antibody reactive. Hepatitis A IgM antibody will be performed and reported separately when completed. Specimen Serum Performing Organization Address [facility] Phone Number [facility] [place] [address] PATHOLOGY AND [facility] MEDICINE [address] * Anti mitochondria screen (06/12/2018 4:00 AM [employer]) Anti mitochondria screen Not Detected Not-Detected [facility] Specimen Blood Performing Organization Address City/[facility] Phone Number [facility] [place] [address] PATHOLOGY AND [facility] MEDICINE [address] * Ceruloplasmin level (06/12/2018 4:00 AM [employer]) Ceruloplasmin 22 15 - 30 mg/dL [facility] Specimen Plasma specimen Performing Organization Address City/State/Zipcode Phone Number [facility] DEPARTMENT OF [address] [place] [address] PATHOLOGY AND [facility] MEDICINE [address] * Hepatitis B core antibody total (06/12/2018 4:00 AM [employer]) Hepatitis B core total Ab Non-reactive Non-reactive [facility] Specimen Serum Performing Organization Address City/State/Zipcode Phone Number [facility] DEPARTMENT OF [address] [place] [address] PATHOLOGY AND [facility] MEDICINE [address] * Hepatitis C virus quantitative by PCR (06/12/2018 4:00 AM [employer]) Hepatitis C quantitative, Not-Detected Not-Detected IU/mL [facility] Hepatitis C quantitative, See link below for PDF Lab [facility] ReportComment: Case Number: [facility] [id number] Specimen Blood Performing Organization Address City/[facility]/Zipcode Phone Number [facility] DEPARTMENT OF [address] [place] [address] PATHOLOGY AND [facility] MEDICINE [address] * Hepatitis B surface antibody (06/12/2018 4:00 AM [employer]) Hepatitis B surface Ab Non-reactive Non-reactive [facility] Specimen Serum Performing Organization Address City/[facility] Phone Number [facility] [place] [address] PATHOLOGY [address] * Hepatitis B surface antigen (06/12/2018 4:00 AM [employer]) Hepatitis B surface Ag Non-reactive Non-reactive [facility] Specimen Serum Performing Organization Address City/State/Zipcode Phone Number [facility] DEPARTMENT OF [address] [place] [address] PATHOLOGY AND [facility] MEDICINE [address] * CARLA (06/12/2018 4:00 AM [employer]) CARLA screen Negative Negative [facility] Specimen Blood Performing Organization Address City/State/Zipcode Phone Number [facility] DEPARTMENT OF [address] [place] [address] PATHOLOGY AND [facility] MEDICINE [address] * Lactic acid level (06/12/2018 4:00 AM [employer]) Only the most recent of 2 results within the time period is included. Lactic acid 1.1 0.5 - 2.2 mmol/L [facility] Specimen Plasma specimen Performing Organization Address City/[facility] Phone Number [facility] [place] [address] PATHOLOGY AND GENOMIC MEDICINE [address] * Hemoglobin A1c (06/12/2018 4:00 AM [employer]) Hemoglobin A1C 5.1 4.0 - 5.6 % [facility] Comment: HOSPITAL HbA1c cutoffs for diagnosing diabetes: 4.0% - 5.6%=normal 5.7% - 6.4%=increased risk for diabetes (prediabetes) >=6.5%=diabetes Goals for glycemic control (ADA 2016) < 7.0%Target for non adults with diabetes. More or less stringent targets may be appropriate for individual patients. <7.5% Target for Children and adolescents with type 1 diabetes. Specimen Blood Performing Organization Address City/[facility]ode Phone Number [facility] [place] [address] PATHOLOGY AND [facility] MEDICINE [address] * GGT (06/12/2018 4:00 AM [employer]) GGT 137 (H) 0 - 59 U/L [facility] Specimen Plasma specimen Performing Organization Address City/[facility] Phone Number [facility] [place] [address] PATHOLOGY AND GENOMIC MEDICINE [address] * Ferritin level (06/12/2018 4:00 AM [employer]) Ferritin level 1,592 (H) 30 - 400 ng/mL [facility] Specimen Plasma specimen Performing Organization Address [facility]ode Phone Number [facility] [place] [address] PATHOLOGY AND GENOMIC MEDICINE [address] * Ammonia level (06/12/2018 4:00 AM [employer]) Only the most recent of 2 results within the time period is included. Ammonia 41 16 - 60 umol/L [facility] Specimen Blood Performing Organization Address City/[facility]/Zipcode Phone Number [facility] DEPARTMENT OF [address] [place] [address] PATHOLOGY AND GENOMIC MEDICINE [address] * Lactic acid level, SEPSIS - Now and repeat 2x every 3 hours (06/11/2018 7:28 PM [employer]) Only the most recent of 2 results within the time period is included. Lactic acid 2.6 (H) 0.5 - 2.2 mmol/L [facility] Specimen Blood Performing Organization Address City/[facility] Phone Number [facility] [place] [address] PATHOLOGY AND GENOMIC MEDICINE [address] * Potassium level (06/11/2018 7:28 PM [employer]) Potassium 5.9 (H) 3.5 - 5.0 mEq/L [facility] Specimen Plasma specimen Performing Organization Address City/[facility] Phone Number [facility] [place] [address] PATHOLOGY AND GENOMIC MEDICINE [address] * US Renal (06/11/2018 6:52 PM [employer]) Narrative Performed At EXAMINATION:US RENAL RADIANT CLINICAL HISTORY:Renal failureacute (kidney injury) COMPARISON:None. IMPRESSION: 1.There is no hydronephrosis. 2.Renal cortical echogenicity is slightly increased reflecting medical renal disease. 3.Right kidney measures 11.3 x 4.5 x 6.9 cm. 4.Left kidney measures 10.3 x 5.5 x 5 cm. 5.Bladder is unremarkable. 6.There is small ascites. [facility]-[id number] Procedure Note Hm Interface, Radiology Results Incoming - 06/11/2018 7:09 PM [employer] EXAMINATION: US RENAL CLINICAL HISTORY: Renal failure acute (kidney injury) COMPARISON: None. IMPRESSION: 1. There is no hydronephrosis. 2. Renal cortical echogenicity is slightly increased reflecting medical renal disease. 3. Right kidney measures 11.3 x 4.5 x 6.9 cm. 4. Left kidney measures 10.3 x 5.5 x 5 cm. 5. Bladder is unremarkable. 6. There is small ascites. [facility]-[id number] Performing Organization Address City/[facility]/[place] [address] * Sodium level, urine, random (06/11/2018 6:05 PM [employer]) Sodium, urine, random 53 mEq/L [facility] Specimen Urine Performing Organization Address City/[facility] Phone Number [facility] [place] [address] PATHOLOGY AND GENOMIC MEDICINE [address] * Creatinine level, urine, random (06/11/2018 6:05 PM [employer]) Creatinine, urine, random 85 mg/dL [facility] Specimen Urine Performing Organization Address [facility] Phone Number [facility] [place] [address] PATHOLOGY AND [facility] MEDICINE [address] * Urinalysis screen and microscopy, with reflex to culture (06/11/2018 5:05 PM [employer]) Specimen site Clean catch [facility] Color, UA Valentina [facility] Appearance, UA Clear [facility] Specific gravity, UA 1.012 1.001 - 1.035 [facility] pH, UA 6.0 5.0 - 8.5 [facility] Protein, UA Negative Negative [facility] Glucose, UA Negative Negative [facility] Ketones, UA Negative Negative [facility] Bilirubin, UA Negative Negative [facility] Blood, UA Negative Negative [facility] Nitrite, UA Negative Negative [facility] Urobilinogen, UA <2.0 <2.0 [facility] Leukocyte esterase, UA Negative Negative [facility] WBC, UA 3 (H) 0 - 1 /HPF [facility] RBC, UA 1 0 - 5 /HPF [facility] Bacteria, UA Few None seen [facility] Yeast, UA None seen [facility] Yeast with pseudohyphae, None seen [facility] Hyaline casts, UA 14 /LPF [facility] Specimen Urine Performing Organization Address [facility]ode Phone Number [facility] [place] [address] PATHOLOGY AND GENOMIC MEDICINE [facility] [address] [place] [address] * Urine culture (06/11/2018 5:05 PM [employer]) Urine culture SEE COMMENTComment: [facility] Bacteriuria screen negative. HOSPITAL Performing Organization Address City/State/[facility] Phone Number [facility] DEPARTMENT OF [address] [place] [address] PATHOLOGY AND GENOMIC MEDICINE [facility] [address] [place] [address] HOSPITAL * ECG 12 lead (06/11/2018 4:02 PM [employer]) Ventricular rate 87 [facility] Atrial rate 87 [facility] DE interval 152 [facility] QRSD interval 120 [facility] QT interval 406 [facility] QTC interval 488 [facility] P axis 1 53 [facility] M[facility] QRS axis 1 58 [facility] MUSE T wave axis 1 HM MUSE EKG impression Normal sinus rhythm-Inferior HM MUSE infarct , age undetermined-Abnormal ECG-No previous ECGs available- Narrative Performed At Performing Organization Address City/[facility] Centercode Phone Number [facility] [address] [place] [address] * CT Abdomen Wo Contrast (06/11/2018 4:00 PM [employer]) Narrative Performed At EXAMINATION:CT ABDOMEN WO CONTRAST HM RADIANT CLINICAL HISTORY:Abn liver function tests (LFTs) TECHNIQUE: Multiple axial images of the abdomen were obtained without intravenous contrast. Sagittal and coronal computerized reformatted images were also obtained. The lack of intravenous contrast reduces the sensitivity of detecting solid organ disease. CT scans are performed using radiation dose reduction techniques. Technical factors are evaluated and adjusted to ensure appropriate moderation of exposure. Automated dose management technology is applied to adjust radiation exposure while achieving a diagnostic quality image. COMPARISON:None. IMPRESSION: 1.Liver is cirrhotic. There is moderate ascites compatible with portal hypertension. Spleen is enlarged, 16 cm. 2.There is cholelithiasis. 3.2.1 cm fat density right adrenal mass compatible with a myelolipoma. The kidneys are normal in size and contour without hydronephrosis. The pancreas is unremarkable in noncontrast appearance. 4.The abdominal aorta is normal in caliber. There is no regional adenopathy. 5.No suspicious osseous lesions are seen. [facility]-[id number] Procedure Note [facility], Radiology Results Incoming - 06/11/2018 5:12 PM [employer] EXAMINATION: CT ABDOMEN WO CONTRAST CLINICAL HISTORY: Abn liver function tests (LFTs) TECHNIQUE: Multiple axial images of the abdomen were obtained without intravenous contrast. Sagittal and coronal computerized reformatted images were also obtained. The lack of intravenous contrast reduces the sensitivity of detecting solid organ disease. CT scans are performed using radiation dose reduction techniques. Technical factors are evaluated and adjusted to ensure appropriate moderation of exposure. Automated dose management technology is applied to adjust radiation exposure while achieving a diagnostic quality image. COMPARISON: None. IMPRESSION: 1. Liver is cirrhotic. There is moderate ascites compatible with portal hypertension. Spleen is enlarged, 16 cm. 2. There is cholelithiasis. 3. 2.1 cm fat density right adrenal mass compatible with a myelolipoma. The kidneys are normal in size and contour without hydronephrosis. The pancreas is unremarkable in noncontrast appearance. 4. The abdominal aorta is normal in caliber. There is no regional adenopathy. 5. No suspicious osseous lesions are seen. [facility]-[id number] Performing Organization Address City/[facility]/Zipcode Phone Number [facility] [address] [place] [address] * Troponin (06/11/2018 3:29 PM [employer]) Troponin <0.30 0.00 - 0.30 ng/mL [facility] Comment: HOSPITAL 0.30 - 1.49 ng/mlMay indicate increased risk of acute coronary syndrome. >=1.5 ng/ml Consistent with acute myocardial infarction. The diagnostic value of a single normal or non-diagnostic result is questionable.Serial samples at 2-6 hour intervals are required to rule out acute myocardial injury. Specimen Blood Performing Organization Address [facility]/Zipcode Phone Number [facility] DEPARTMENT OF [address] [place] [address] PATHOLOGY AND GENOMIC MEDICINE [facility] [address] [place] [address] * Partial thromboplastin time, activated (06/11/2018 1:04 PM [employer]) PTT 36.5 (H) 23.0 - 36.0 sec [facility] Comment: HOSPITAL PTT therapeutic range for unfractionated heparin is 61.0-112.0 seconds which corresponds to Anti-Xa 0.3-0.7 U/ml. Specimen Blood Performing Organization Address City/[facility]/Zipcode Phone Number [facility] [place] [address] PATHOLOGY [address] * Respiratory pathogen panel (06/11/2018 12:55 PM [employer]) Respiratory pathogen Negative for all pathogens [facility] panel tested: HOSPITAL Negative for Adenovirus Negative for Coronavirus HKU1 Negative for Coronavirus NL63 Negative for Coronavirus 229E Negative for Coronavirus OC43 Negative for Human Metapneumovirus Negative for Rhinovirus/Enterovirus Negative for Influenza A Negative for Influenza A/H1 Negative for Influenza A/H3 Negative for Influenza A/H1-2009 Negative for Influenza B Negative for Parainfluenza Virus 1 Negative for Parainfluenza Virus 2 Negative for Parainfluenza Virus 3 Negative for Parainfluenza Virus 4 Negative for Respiratory Syncytial Virus Negative for Bordetella pertussis Negative for Chlamydophila pneumoniae Negative for Mycoplasma pneumoniae This real-time PCR assay detects the presence of nucleic acids (RNA or DNA) for the respiratory pathogens listed. A result of "Not-detected" does not exclude the possibility of the presence of one or more pathogens at concentrations less than the detectable limits of the assay. Comment: Specimen Information Specimen Source: Nares Specimen Site: Right Specimen Nares - Right Performing Organization Address [facility] Cent[facility]ode Phone Number [facility] [place] [address] PATHOLOGY [address] * Influenza antigen test, reflex negative to RPP (06/11/2018 12:55 PM [employer]) Influenza antigen Negative for Influenza A/B [facility]. [facility] Comment: Specimen Information Specimen Source: Nares Specimen Site: Right Specimen Nares - Right Performing Organization Address City/[facility]/Zipcode Phone Number [facility] [place] [address] PATHOLOGY [address] * Blood culture, aerobic & anaerobic (06/11/2018 12:55 PM [employer]) Only the most recent of 2 results within the time period is included. Blood culture isolate No growth after 5 days of [facility] incubation. HOSPITAL Comment: Specimen Information Specimen Source: Blood Specimen Site: Arm, right Specimen Blood - Arm, right Performing Organization Address [facility] Phone Number [facility] [place] [address] PATHOLOGY AND GENOMIC MEDICINE [address] * CRITICAL CARE (06/11/2018 12:21 PM [employer]) Narrative Performed At Vishal Vidal MD 06/15/20188:56 AM Critical Care Performed by: Vishal Vidal MD Authorized by: Vishal Vidal MD Critical care provider statement: Critical care time (minutes):35 Critical care start time:06/11/2018 12:25 PM Critical care end time:06/11/2018 1:00 PM Critical care time was exclusive of:Separately billable procedures and treating other patients and teaching time Critical care was necessary to treat or prevent imminent or life-threatening deterioration of the following conditions:Shock, circulatory failure and renal failure Critical care was time spent personally by me on the following activities:Ordering and performing treatments and interventions, ordering and review of laboratory studies, ordering and review of radiographic studies, pulse oximetry, re-evaluation of patient's condition, review of old charts, obtaining history from patient or surrogate, interpretation of cardiac output measurements, examination of patient, evaluation of patient's response to treatment, discussions with primary provider, discussions with consultants and development of treatment plan with patient or surrogate Bigg 'yes' if you are taking over critical care for this patient from another provider.: no * C-reactive protein (06/11/2018 11:32 AM [employer]) CRP 1.57 (H) 0.00 - 0.50 mg/dL [facility] Specimen Plasma specimen Performing Organization Address [facility] Centercode Phone Number [facility] DEPARTMENT OF [address] [place] [address] PATHOLOGY AND GENOMIC MEDICINE [address] * B natriuretic peptide (06/11/2018 11:32 AM [employer]) BNP 34 0 - 100 pg/mL [facility] Performing Organization Address City/[facility] Centercode Phone Number [facility] [place] [address] PATHOLOGY AND GENOMIC MEDICINE [address] * Lipase level (06/11/2018 11:32 AM [employer]) Lipase 342 (H) 13 - 60 U/L [facility] Specimen Plasma specimen Performing Organization Address City/[facility]ode Phone Number [facility] [place] [address] PATHOLOGY AND GENOMIC MEDICINE [address] * Alcohol level, blood (06/11/2018 11:32 AM [employer]) Alcohol None Detected mg/dL [facility] Comment: HOSPITAL Normal None Detected Legal Intoxication in [place]80 mg/dL (0.08%) - Whole Blood Toxic Concentration 200 mg/dL (0.2%) Potentially Fatal3 50 - 500 mg/dL (0.35 - 0.5%) Alcohol percent None Detected % [facility] Specimen Plasma specimen Performing Organization Address [facility] Phone Number [facility] [place] [address] PATHOLOGY AND GENOMIC MEDICINE [address] after 07/19/2017 Insurance Payer Benefit Subscriber ID Type Phone Address Plan / Group CIGNA CIGNA OPEN xxxxxxxxxxx O ACCESS/NET WORK Advance Directives Patient has advance care planning documents on file. For more information, pre[place] e contact: [place] [phone]
--- OUTSIDE RECORDS SUMMARY | 2018-07-20 05:08 | XMS REPORT ---
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
--- OUTSIDE RECORDS SUMMARY | 2018-07-20 05:08 | XMS REPORT ---
Author Author Jose L Samuels Organization [employer] Address Unknown Phone Unavailable Care Team Providers Care Production Support Consultant Name Role Phone Jose L Samuels CP Unavailable Allergies, Adverse Reactions, Alerts Substance Reaction Event Type N.K.D.A. Info Not Available Non Drug Allergy Encounters Encounter Location Date Unknown [facility] September 21, [id number] [facility] [facility] auth [facility] September 22, 2013 lexiscan--message [facility] September 22, 2013 Test results [facility] October 07, 2013 Problems Problem Type Condition ICD-9 Code Onset Dates Condition Status Assessment Benign hypertension 401.1 Active Problem Benign hypertension 401.1 Active Medications Medication Code System Code Instructions Start Date End Date Status Dosage Benicar MULTUM 52808 40 mg orally once a day Inactive 1 tab(s) Benicar HCT MULTUM 55805 25 mg-40 mg orally once a day September 21, 2013 Active 1 tab(s) aspirin MULTUM 37271 81 mg orally once a day Active 1 tab(s) metoprolol MULTUM 55336 100 mg orally once a day Active 1 tab(s) fenofibrate MULTUM 72540 145 mg orally once a day Active 1 tab(s) Robaxin-750 MULTUM 3673 750 mg orally prn Active 2 tab(s) minocycline MULTUM 07915 100 mg orally once a day Active 1 cap(s) tramadol MULTUM 01324 50 mg orally prn Active 1 tab(s) Nexium MULTUM 96048 40 mg orally once a day Active 1 cap(s) Social History Social History Element Qualifiers Date Reported Caffeine: . none October 07, 2013 Recreational drug use: . none October 07, 2013 Tobacco Use: . Smoking Status: current smoker October 07, 2013 Alcohol: . 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
--- OUTSIDE RECORDS SUMMARY | 2018-07-20 05:08 | XMS REPORT ---
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
[2018-07-20 08:00] VITALS: BP 114/63
--- NOTE | 2018-07-20 13:08 | Operative Report ---
DATE OF PROCEDURE: 07/20/2018 SURGEON: Abdoulaye Park MD PREOPERATIVE DIAGNOSIS: Left hip osteoarthritis/osteonecrosis. POSTOPERATIVE DIAGNOSIS: Left hip osteoarthritis/osteonecrosis. PROCEDURE: Left hip fluoroscopic corticosteroid injections. INDICATIONS: The patient is a 53-year-old gentleman, who is status post liver transplant. He has been treated with multiple immunosuppressive medications. He recently developed severe pain in his left groin. An MRI was inconclusive for evidence of joint effusion or osteonecrosis. He has some osteoarthritis. We planned on a diagnostic aspiration and injection. The risks and benefits were explained. He states he understands and wishes to proceed. DESCRIPTION OF PROCEDURE: The patient was brought to the procedure room and given a MAC anesthetic. His left hip was prepped and draped in a sterile manner. A preoperative time-out was performed. A C-arm image intensifier was used to assist in placing a spinal needle in the inferior recess of the left hip joint. Attempts were made to aspirate any joint effusion. There was no fluid. A small amount of radiopaque dye confirmed intra-articular position. A mixture of 8 mL of 0.5% Marcaine and 40 mg of Kenalog was then injected into the hip joint. The needle was retrieved and a Band-Aid was applied. He was transported to the recovery room in stable condition. There was no blood loss and all needle and sponge counts were correct. Abdoulaye Park MD DR/MODL /[id number]
== END | disposition home or self-care (01) ==
LOC: OR 05:00 → EDBD 07:00
PROVIDERS: ATTEND Specialist
DX: M16.12 Unilateral primary osteoarthritis, left hip (principal); M87.852 Other osteonecrosis, left femur; E11.9 Type 2 diabetes mellitus without complications; K74.60 Unspecified cirrhosis of liver; K21.9 Gastro-esophageal reflux disease without esophagitis; G47.33 Obstructive sleep apnea (adult) (pediatric); I10 Essential (primary) hypertension; E78.5 Hyperlipidemia, unspecified; N28.9 Disorder of kidney and ureter, unspecified
CPT/HCPCS: 20611; 36415 ×2; 76000; 80053; 82948; 93005; J2001; J2250; J2704; J3301; Q9967